=== PATIENT | male | born 1990 | race Two or more races ===

== ENCOUNTER 2016-06-24 15:47 | Emergency (ER) | payer OTHER ==
[2016-06-24 16:10] VITALS: BP 151/73; PULSE 85; RESP 18; TEMP 97.8
--- NOTE | 2016-06-24 17:10 | XR ---
EXAMINATION TYPE: XR knee complete LT DATE OF EXAM: 06/24/2016 5:01 PM COMPARISON: NONE HISTORY: Left knee pain since injury earlier today. TECHNIQUE: 3 views of the left knee were obtained. FINDINGS: There is a small suprapatellar joint effusion. No evidence of fracture or dislocation. Scle rosis of the lateral tibial plateau is more prominent then medial tibial plateau sclerosis. This is b geeta visualized than on the prior examination, although retrospectively evident. No significant join t space narrowing is noted. No marginal osteophytes are seen. No osteochondral defect is identified. Osseous mineralization is within normal limits. IMPRESSION: 1. No evidence of fracture or dislocation. 2. Small suprapatellar joint effusion. 3. Lateral compartment greater than medial compartment tibial sclerosis without joint space narrowing . This may relate to very early sequela osteoarthritic change.
--- NOTE | 2016-06-24 17:15 | ED ---
Lower Extremity Injury HPI - General Chief Complaint: Extremity Injury, Lower Stated Complaint: Knee Pain Time Seen by Provider: 06/24/16 16:29 Source: patient, RN notes reviewed, old records reviewed Mode of arrival: wheelchair Limitations: no limitations - History of Present Illness Initial Comments: Patient is a 25-year-old male with chief complaint of left knee pain. Patient reports that he was lifting up a box at work when he felt a twist from underneath him. Patient is any problems with his knee before. He states he is having difficulty fully extending his leg. He denies any numbness or tingling down the leg. Denies any hip pain. Patient reports that he does have range of motion however does cause some pain and he has noticed started to swell.Patient denies any recent fever, chills, shortness of breath, chest pain, back pain, abdominal pain, nausea vomiting, numbness or tingling, dysuria or hematuria, constipation or diarrhea, headaches or visual changes, or any other current symptoms - Related Data Home Medications Medication Instructions Recorded Confirmed Aspirin 243 mg PO ONCE PRN 06/24/16 06/24/16 Previous Rx's Medication Instructions Recorded Ibuprofen [Motrin] 800 mg PO Q6HR PRN #20 tab 06/24/16 Allergies Allergy/AdvReac Type Severity Reaction Status Date / Time trazodone AdvReac Unknown Verified 06/24/16 16:16 Review of Systems ROS Statement: Those systems with pertinent positive or pertinent negative responses have been documented in the HPI. ROS Other: All systems not noted in ROS Statement are negative. Past Medical History Past Medical History: No Reported History History of Any Multi-Drug Resistant Organisms: None Reported Past Surgical History: No Surgical Hx Reported Past Anesthesia/Blood Transfusion Reactions: No Reported Reaction Past Psychological History: ADD/ADHD, Anxiety, Depression, PTSD Smoking Status: Current every day smoker Past Alcohol Use History: Occasional Additional Past Alcohol Use History / Comment(s): Patient is a smoker of one pack per day for the past 14 years. He is also using marijuana one joint per day to help with sleeping. He is working doing [employer]. He should've stays with her friends and does not actually have a home. Patient briefly took his friend's Xanax but denies any other street drug use. He denies any diabetes drug use. He denies alcohol use. Past Drug Use History: None Reported - Past Family History Father Additional Family Medical History / Comment(s): He states he does not know his family's medical history other than on both sides his family there is been extensive cancer. He believes his mother is alive at age 39 and his father is alive at age 38. He does not have contact with them as he has been in foster care. Patient has one brother with schizophrenia and is currently in longterm. One younger brother is healthy with no medical problems. Patient has 3 sisters and one has autism General Exam Limitations: no limitations General appearance: alert, in no apparent distress Head exam: Present: normocephalic Eye exam: Present: normal appearance, PERRL, EOMI. Absent: scleral icterus, conjunctival injection, periorbital swelling ENT exam: Present: normal exam, mucous membranes moist Neck exam: Present: normal inspection. Absent: tenderness, meningismus, lymphadenopathy Respiratory exam: Present: normal lung sounds bilaterally. Absent: respiratory distress, wheezes, rales, rhonchi, stridor Cardiovascular Exam: Present: regular rate, normal rhythm, normal heart sounds. Absent: systolic murmur, diastolic murmur, rubs, gallop, clicks GI/Abdominal exam: Present: soft, normal bowel sounds. Absent: distended, tenderness, guarding, rebound, rigid Extremities exam: Present: normal inspection, full ROM, normal capillary refill. Absent: tenderness, pedal edema, joint swelling, calf tenderness Back exam: Present: normal inspection Neurological exam: Present: alert, oriented X3, CN II-XII intact Psychiatric exam: Present: normal affect, normal mood Skin exam: Present: warm, dry, intact, normal color. Absent: rash Course Vital Signs 06/24/16 16:07 Temperature 97.8 F Pulse Rate 85 Respiratory 18 Rate Blood Pressure 151/73 O2 Sat by Pulse 99 Oximetry Medical Decision Making - Medical Decision Making Patient is a pleasant 25-year-old male to plan of left knee pain after twisting after lifting some boxes. Patient's x-rays reviewed to small suprapatellar joint effusion. Patient is unable to fully extend his leg. He has had some tenderness over the medial meniscus. Patient will be placed in a knee immobilizer. Discussed close follow-up with orthopedic. Patient will be also written for crutches. Patient advised to elevate extremity apply heat and ice. Patient agrees to treatment plan will comply. Return parameters were discussed. - Radiology Data Radiology results: report reviewed Left knee x-ray shows no evidence of fracture dislocation. Small suprapatellar joint effusion. Lateral compartment greater than the medial compartment tibial sclerosis joint space. Narrowing. They may result in early sequela posterior throat change. This is read by Dr. Mihaela Gerber. Disposition Clinical Impression: Knee MCL sprain, Swollen L knee Disposition: HOME SELF-CARE Condition: Good Instructions: Knee Sprain (ED) Additional Instructions: Follow-up with orthopedic physician within the next 2-3 days. Patient needs to remain in a knee immobilizer. Apply ice over the area. Tammie with crutches. Return the emergency Department if any alarming signs or symptoms occur. Prescriptions: Ibuprofen [Motrin] 800 mg PO Q6HR PRN #20 tab PRN Reason: Pain Referrals: Lonny Chanel MD [Primary Care Provider] - 1-2 days Jonathan Braden MD [STAFF PHYSICIAN] - 1-2 days Time of Disposition: 17:11
== END 2016-06-24 17:24 | disposition home or self-care (01) ==
LOC: EC 15:47
DX: S83.412A Sprain of medial collateral ligament of left knee, initial encounter (principal); F17.200 Nicotine dependence, unspecified, uncomplicated; Z88.8 Allergy status to other drugs, medicaments and biological substances; Z79.82 Long term (current) use of aspirin; X50.1XXA Overexertion from prolonged static or awkward postures, initial encounter
CPT/HCPCS: 99283; 73562; L1830

== ENCOUNTER 2018-04-25 07:35 | Emergency (ER) | payer OTHER ==
[2018-04-25 07:45] VITALS: RESP 18
[2018-04-25] MEDS ORDERED: KETOROLAC 60 MG/2 ML VIAL IM STA (08:07)
[2018-04-25] MEDS ORDERED: ACET/COD 300 MG/30 MG STARTER PACK 6 TAB BTL PO STA (08:07)
--- NOTE | 2018-04-25 08:17 | ED ---
Lower Extremity Injury HPI - General Chief Complaint: Extremity Injury, Lower Stated Complaint: Knee Pain Time Seen by Provider: 04/25/18 08:00 Source: patient, RN notes reviewed, old records reviewed Mode of arrival: ambulatory Limitations: no limitations - History of Present Illness Initial Comments: Patient is a 27-year-old male presents emergency department today with chief complaint of right knee pain. Patient reports he towards meniscus approximately one year ago. He states he followed up orthopedic and they recommended surgery at that time. Patient states that he has been too busy with work to have time off to have surgery for his knee. Patient states that he 's had no fevers or chills. Denies any hematuria dysuria or abrasions over the knee. Patient states that he has had limited flexion of the knee within the past 2 weeks. He reports it is swollen. He's been taking Motrin and icing the knee. Patient states that he has no known trauma, may have twisted at work. - Related Data Home Medications Medication Instructions Recorded Confirmed Albuterol Inhaler [Ventolin Hfa 2 puff INHALATION Q8H 04/25/18 04/25/18 Inhaler] Ibuprofen [Motrin Ib] 800 mg PO Q6H 04/25/18 04/25/18 Previous Rx's Medication Instructions Recorded Ibuprofen [Motrin] 600 mg PO Q8HR PRN #30 tab 04/25/18 Allergies Allergy/AdvReac Type Severity Reaction Status Date / Time Pork/Porcine Containing AdvReac Unknown Verified 04/25/18 08:05 Products [Pork] trazodone AdvReac Unknown Verified 04/25/18 08:05 Review of Systems ROS Statement: Those systems with pertinent positive or pertinent negative responses have been documented in the HPI. ROS Other: All systems not noted in ROS Statement are negative. Past Medical History Past Medical History: No Reported History History of Any Multi-Drug Resistant Organisms: None Reported Past Surgical History: No Surgical Hx Reported Past Anesthesia/Blood Transfusion Reactions: No Reported Reaction Past Psychological History: ADD/ADHD, Anxiety, Depression, PTSD Smoking Status: Current every day smoker Past Alcohol Use History: Occasional Past Drug Use History: None Reported - Past Family History Father Additional Family Medical History / Comment(s): He states he does not know his family's medical history other than on both sides his family there is been extensive cancer. He believes his mother is alive at age 39 and his father is alive at age 38. He does not have contact with them as he has been in foster care. Patient has one brother with schizophrenia and is currently in custodial. One younger brother is healthy with no medical problems. Patient has 3 sisters and one has autism General Exam - General Exam Comments Initial Comments: This is a 27-year-old male. Alert and oriented. No distress. Limitations: no limitations General appearance: alert, in no apparent distress Head exam: Present: atraumatic, normocephalic, normal inspection Eye exam: Present: normal appearance, PERRL, EOMI. Absent: scleral icterus, conjunctival injection, periorbital swelling ENT exam: Present: normal exam, mucous membranes moist Neck exam: Present: normal inspection. Absent: tenderness, meningismus, lymphadenopathy Respiratory exam: Present: normal lung sounds bilaterally. Absent: respiratory distress, wheezes, rales, rhonchi, stridor Cardiovascular Exam: Present: regular rate, normal rhythm, normal heart sounds. Absent: systolic murmur, diastolic murmur, rubs, gallop, clicks GI/Abdominal exam: Present: soft, normal bowel sounds. Absent: distended, tenderness, guarding, rebound, rigid Extremities exam: Present: normal inspection, full ROM, normal capillary refill. Absent: tenderness, pedal edema, joint swelling, calf tenderness Right Upper Leg exam: Present: normal inspection Knee exam: Present: tenderness, swelling. Absent: normal inspection, full ROM ( Patient has pain with flexion. Able to flex to 90 degrees. ), abrasion, laceration Lower Leg exam: Present: normal inspection, full ROM Ankle exam: Present: normal inspection, full ROM Foot/Toe exam: Present: normal inspection, full ROM Neurovascular tendon exam: Present: no vascular compromise Back exam: Present: normal inspection Neurological exam: Present: alert, oriented X3, CN II-XII intact Psychiatric exam: Present: normal affect, normal mood Skin exam: Present: warm, dry, intact, normal color. Absent: rash Course Vital Signs 04/25/18 04/25/18 07:42 08:36 Temperature 98.2 F 98.6 F Pulse Rate 126 H 110 H Respiratory 18 18 Rate Blood Pressure 135/86 125/79 O2 Sat by Pulse 98 97 Oximetry Procedures - Orthopedic Splinting/Casting Injury #1 Side: right Lower Extremity Injury Location: knee Lower Extremity Immobilizer: knee immobilizer, Oscar wrap Additional Comments: is reevaluated neurovascularly intact. Medical Decision Making - Medical Decision Making Patient is a 27-year-old male presents today with right knee pain. Patient has significant suprapatellar joint effusion noted. He has pain with range of motion but does flex up to 90. He had a history of meniscus tear over ago. He is not follow-up with orthopedics for surgery. At this time patient's x-ray showed no significant change. They do show evidence of the suprapatellar effusion. Tender over the meniscus area. Patient has no skin abrasions or other risk factors for infection at this time. I did discuss the Patient if he was to have fevers or worsening swelling to return for reevaluation. Patient will be discharged at this time with any immobilizer and Oscar wrap. Redness prescription for crutches and a temperature medication. Discussed close follow- up with orthopedic. - Radiology Data Radiology results: report reviewed No acute fractures Patient. Large suprapatellar joint effusion. Concern for internal drainage from the knee correlate with MRI. 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 Return to the emergency department if any alarming signs or symptoms occur. Ambulate with crutches and knee immobilizer. Prescriptions: Ibuprofen [Motrin] 600 mg PO Q8HR PRN #30 tab PRN Reason: Pain Is patient prescribed a controlled substance at d/c from ED?: No Referrals: Santi Powers MD [Primary Care Provider] - 1-2 days Adonay Olivares MD [STAFF PHYSICIAN] - 1-2 days Time of Disposition: 08:54
--- NOTE | 2018-04-25 08:32 | XR ---
EXAMINATION TYPE: XR knee complete RT DATE OF EXAM: 04/25/2018 COMPARISON: NONE HISTORY: Pain TECHNIQUE: Four views are submitted. FINDINGS: Joint spaces are preserved. Osseous structures are intact. No acute fracture seen. Focal area of s clerosis involving the medial femoral condyle and proximal tibia likely related to bone island. There is a large suprapatellar joint effusion. IMPRESSION: 1. No acute fracture or dislocation. There is a large suprapatellar joint effusion. If there is conc eliane for internal derangement of the knee correlate with MRI.
[2018-04-25 08:39] VITALS: BP 125/79; PULSE 110; TEMP 98.6
== END 2018-04-25 09:07 | disposition home or self-care (01) ==
LOC: EC 07:35
DX: M25.461 Effusion, right knee (principal); F17.200 Nicotine dependence, unspecified, uncomplicated; Z79.899 Other long term (current) drug therapy; Z91.018 Allergy to other foods; Z88.8 Allergy status to other drugs, medicaments and biological substances
CPT/HCPCS: 96372; 99284

== ENCOUNTER 2018-11-30 18:59 | Emergency (ER) | payer OTHER ==
[2018-11-30] MEDS ORDERED: MORPHINE SULFATE 4 MG/ML SYRINGE IVP STA ×2 (19:23→22:04)
[2018-11-30 20:12] LABS: Basophils % (A) 0 %; Eosinophils # (A) 0.1 k/uL (0-0.7); Eosinophils % (A) 1 %; HCT 47.9 % (39.0-53.0); HGB 15.4 gm/dL (13.0-17.5); Lymphocytes # (A) 1.7 k/uL (1.0-4.8); Lymphocytes % (A) 23 %; MCH 30.9 pg (25.0-35.0); MCHC 32.2 g/dL (31.0-37.0); Mean Platelet Volume 6.6; Monocytes # (A) 0.5 k/uL (0-1.0); Monocytes % (A) 7 %; Neutrophils # (A) 4.8 k/uL (1.3-7.7); Neutrophils % (A) 66 %; Platelet Count 251 k/uL (150-450); RBC 4.99 m/uL (4.30-5.90); RDW 12.5 % (11.5-15.5); WBC 7.3 k/uL (3.8-10.6)
[2018-11-30 20:16] LABS: Partial Thromboplastin Time 29.1 sec (22.0-30.0); Prothrombin Time 10.6 sec (9.0-12.0)
[2018-11-30 20:26] LABS: ALT 124 U/L (21-72); AST 80 U/L (17-59); African American GFR (CKD) >90 (>60 ml/min/1.73 sqM); Albumin 4.1 g/dL (3.5-5.0); Alcohol <10 mg/dL; Alkaline Phosphatase 49 U/L (38-126); Anion Gap 8 mmol/L; Blood Urea Nitrogen 11 mg/dL (9-20); Calcium 9.5 mg/dL (8.4-10.2); Carbon Dioxide 26 mmol/L (22-30); Chloride 106 mmol/L (98-107); Creatine Kinase 358 U/L (55-170); Glucose 88 mg/dL (74-99); Non-African American GFR(CKD) >90 (>60 ml/min/1.73 sqM); Potassium 4.2 mmol/L (3.5-5.1); Sodium 140 mmol/L (137-145); Total Bilirubin 0.7 mg/dL (0.2-1.3); Total Protein 6.9 g/dL (6.3-8.2)
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
[2018-11-30] MEDS ORDERED: DIPH,PERTUS(ACELL)TETVAC-LF 0.5 ML VIAL IM ONE (21:23)
--- NOTE | 2018-11-30 21:45 | XR ---
EXAMINATION TYPE: XR shoulder complete LT DATE OF EXAM: 11/30/2018 COMPARISON: NONE HISTORY: Pain TECHNIQUE: 3 views FINDINGS: There is slight deformity at the AC joint consistent with an old injury. I see no acute fra cture nor dislocation. There are no pathologic calcifications at the greater tuberosity. IMPRESSION: No acute bony abnormality.
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
--- NOTE | 2018-11-30 21:47 | XR ---
EXAMINATION TYPE: XR wrist complete LT DATE OF EXAM: 11/30/2018 COMPARISON: NONE HISTORY: Pain. TECHNIQUE: 4 views FINDINGS: There is transverse fracture distal shaft of the fifth metacarpal without significant displ acement. There is slight posterior angulation on the lateral view. There is no dislocation. IMPRESSION: Acute fracture of the fifth metacarpal distal shaft.
--- NOTE | 2018-11-30 21:48 | XR ---
EXAMINATION TYPE: XR hand complete LT DATE OF EXAM: 11/30/2018 COMPARISON: NONE HISTORY: Pain TECHNIQUE: 3 views FINDINGS: There is slightly angulated distal fifth metacarpal shaft fracture. There is posterior mild soft tissue swelling. There is mild posterior angulation at the fracture site. The other metacarpals are intact. There is a 2 mm metallic foreign body in the soft tissues anterior to the PIP joint of t he little finger. IMPRESSION: Small soft tissue foreign body. Boxer fracture of the distal fifth metacarpal.
--- NOTE | 2018-11-30 21:49 | XR ---
EXAMINATION TYPE: XR pelvis AP view DATE OF EXAM: 11/30/2018 COMPARISON: NONE HISTORY: Pain TECHNIQUE: Single view FINDINGS: Pelvic ring is intact. Proximal femurs and hip joints are intact. Sacroiliac joints appear normal. IMPRESSION: Negative exam. No fracture.
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
[2018-11-30 22:38] VITALS: BP 135/79; PULSE 79; RESP 20; TEMP 98.3
== END 2018-11-30 22:43 | disposition home or self-care (01) ==
LOC: EC 18:59
DX: S62.337A Displaced fracture of neck of fifth metacarpal bone, left hand, initial encounter for closed fracture (principal); S00.81XA Abrasion of other part of head, initial encounter; G40.909 Epilepsy, unspecified, not intractable, without status epilepticus; F17.200 Nicotine dependence, unspecified, uncomplicated; Z79.899 Other long term (current) drug therapy; Z88.8 Allergy status to other drugs, medicaments and biological substances; Z23 Encounter for immunization; Z91.018 Allergy to other foods; V03.99XA Pedestrian with other conveyance injured in collision with car, pick-up truck or van, unspecified whether traffic or nontraffic accident, initial encounter; Y92.410 Unspecified street and highway as the place of occurrence of the external cause; Y93.89 Activity, other specified
CPT/HCPCS: 36415; 93005; 80053; 82550; 84484; 85025; 85610; 85730; 80320; 72170; 73030; 73110; 73130; 71045; 72125; 70486; 70450; 90715; 99285; 96374; 96376; 90471; 29125; J2270

== ENCOUNTER 2018-12-09 22:36 | Emergency (ER) | payer OTHER ==
[2018-12-09] MEDS ORDERED: HYDROcodone/APAP 5-325MG 1 EACH TAB PO STA (23:37)
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
--- NOTE | 2018-12-09 23:56 | XR ---
EXAMINATION TYPE: XR hand complete LT DATE OF EXAM: 12/09/2018 COMPARISON: 11/30/2018 HISTORY: Hand pain TECHNIQUE: 3 views FINDINGS: There is healing fracture distal shaft of the fifth metacarpal. There is bridging callus. T here is slight posterior angulation at the fracture site. There is 2 mm metallic foreign body at the distal phalanx of the little finger. The joint spaces are normal. IMPRESSION: Healing fracture of the fifth metacarpal with slight dorsal angulation unchanged compared to initial exam.
--- NOTE | 2018-12-09 23:57 | XR ---
EXAMINATION TYPE: XR wrist complete LT DATE OF EXAM: 12/09/2018 COMPARISON: 11/30/2018 HISTORY: Wrist pain hand pain TECHNIQUE: 4 views FINDINGS: The carpal bones are intact. Intercarpal joint spaces are fairly normal. There is healing f racture distal fifth metacarpal. Fracture line still visible. IMPRESSION: Healing fracture of the fifth metacarpal without change in position. No acute bony abnorm ality.
[2018-12-10 00:08] VITALS: BP 131/92; PULSE 112; RESP 18; TEMP 97.8
== END 2018-12-10 00:07 | disposition home or self-care (01) ==
LOC: EC 22:36
DX: S62.327D Displaced fracture of shaft of fifth metacarpal bone, left hand, subsequent encounter for fracture with routine healing (principal); G40.909 Epilepsy, unspecified, not intractable, without status epilepticus; F17.200 Nicotine dependence, unspecified, uncomplicated; Z79.899 Other long term (current) drug therapy; Z88.8 Allergy status to other drugs, medicaments and biological substances; Z91.018 Allergy to other foods; V89.2XXA Person injured in unspecified motor-vehicle accident, traffic, initial encounter

== ENCOUNTER 2018-12-20 23:12 | Emergency (ER) | payer OTHER ==
[2018-12-20 23:29] VITALS: BP 130/86; PULSE 87; RESP 18; TEMP 97.8
[2018-12-20] MEDS ORDERED: levETIRAcetam IV 1,000 MG in SALINE 1 100ML.BAG IVPB STA (23:34)
[2018-12-20] MEDS ORDERED: levETIRAcetam 500 MG TAB PO STA (23:38)
--- NOTE | 2018-12-20 23:41 | ED ---
General Adult HPI - General Chief complaint: Seizure Stated complaint: feels confused Time Seen by Provider: 12/20/18 23:14 Source: patient, EMS Mode of arrival: EMS Limitations: no limitations - History of Present Illness Initial comments: Dictation was produced using [employer] dictation software. please excuse any grammatical, word or spelling errors. Chief Complaint: 28-year-old male presents with concern of having a seizure. History of Present Illness: 8-year-old male who has past medical history seizure disorder. Patient is supposed to be on 100 mg of Keppra twice a day. States she's been without his Medications for several weeks. He just got insurance. Patient has history of illicit drug abuse. He states he 6 months clean of heroin. She states today he had a seizure earlier today. He called EMS and was transferred to the emergency department. Patient also has a fracture to his left hand. He was initially placed in a splint however has not been wearing it because he feels like a splint causes him pain. Surgery recommendation when he was initially diagnosed with a fracture 2 weeks ago. The ROS documented in this emergency department record has been reviewed and confirmed by me. Those systems with pertinent positive or negative responses have been documented in the HPI. All other systems are other negative and/or noncontributory. PHYSICAL EXAM: General Impression: Alert and oriented x3, not in acute distress HEENT: Normocephalic atraumatic, extra-ocular movements intact, pupils equal and reactive to light bilaterally, mucous membranes moist. Cardiovascular: Heart regular rate and rhythm, S1&S2 audible, no murmurs, rubs or gallops Chest: Lungs clear to auscultation bilaterally, no rhonchi, no wheeze, no rales Abdomen: Bowel sounds present, abdomen soft, non-tender, non-distended, no organomegaly Musculoskeletal: Pulses present and equal in all extremities, no peripheral edema Left hand: tender callus formation at the mid fifth metacarpal bone Motor: no focal deficits noted Neurological: CN II-XII grossly intact, no focal motor or sensory deficits noted Skin: Intact with no visualized rashes Psych: Normal affect and mood ED course: 28-year-old male presents after concerns of seizure. Brought in by EMS. Upon EMS evaluation patient was alert and oriented 4. Patient is otherwise well-appearing. Vital signs upon arrival are within acceptable limits. Patient is refusing all workup. He is well-appearing at this time. Patient was placed in a splint with extra padding that way he may be more compliant with this. Patient understands that we did not do a workup and that there could be something else that could be going on that may have caused the seizure. Patient understands the risk of the workup. States he just wants a prescription for his Keppra and he wants to leave. Patient is well-appearing. Patient understandable agreeable to the risks involved. Physical examination benign. Patient stable vitals. Patient will be discharged. He is told to follow-up with primary care physician. He will establish care with a neurologist.. - Related Data Home Medications Medication Instructions Recorded Confirmed levETIRAcetam [Keppra] 1,000 mg PO BID 11/30/18 12/20/18 Previous Rx's Medication Instructions Recorded levETIRAcetam [Keppra] 1,000 mg PO Q12HR 12 Days #24 tab 12/20/18 Allergies Allergy/AdvReac Type Severity Reaction Status Date / Time Pork/Porcine Containing AdvReac Unknown Verified 12/20/18 23:29 Products [Pork] trazodone AdvReac Unknown Verified 12/20/18 23:29 Review of Systems ROS Statement: Those systems with pertinent positive or pertinent negative responses have been documented in the HPI. ROS Other: All systems not noted in ROS Statement are negative. Past Medical History Past Medical History: Asthma, Seizure Disorder History of Any Multi-Drug Resistant Organisms: None Reported Past Surgical History: No Surgical Hx Reported Past Anesthesia/Blood Transfusion Reactions: No Reported Reaction Past Psychological History: ADD/ADHD, Anxiety, Depression, PTSD Smoking Status: Current every day smoker Past Alcohol Use History: Occasional Past Drug Use History: Heroin, Marijuana - Past Family History Father Additional Family Medical History / Comment(s): He states he does not know his family's medical history other than on both sides his family there is been extensive cancer. He believes his mother is alive at age 39 and his father is alive at age 38. He does not have contact with them as he has been in foster care. Patient has one brother with schizophrenia and is currently in long-term. One younger brother is healthy with no medical problems. Patient has 3 sisters and one has autism General Exam Limitations: no limitations Course Vital Signs 12/20/18 23:20 Temperature 97.8 F Pulse Rate 87 Respiratory 18 Rate Blood Pressure 130/86 O2 Sat by Pulse 98 Oximetry Disposition Clinical Impression: Seizure Disposition: HOME SELF-CARE Condition: Good Instructions (If sedation given, give patient instructions): Recurrent Seizures in Adults (ED) Prescriptions: levETIRAcetam [Keppra] 1,000 mg PO Q12HR 12 Days #24 tab Is patient prescribed a controlled substance at d/c from ED?: No Referrals: Santi Powers MD [Primary Care Provider] - 1-2 days Time of Disposition: 23:41
== END 2018-12-21 00:06 | disposition home or self-care (01) ==
LOC: EC 23:12
DX: G40.909 Epilepsy, unspecified, not intractable, without status epilepticus (principal); S62.92XA Unspecified fracture of left hand, initial encounter for closed fracture; F19.10 Other psychoactive substance abuse, uncomplicated; F17.200 Nicotine dependence, unspecified, uncomplicated; Z88.8 Allergy status to other drugs, medicaments and biological substances; Z91.018 Allergy to other foods; Z53.20 Procedure and treatment not carried out because of patient's decision for unspecified reasons; X58.XXXA Exposure to other specified factors, initial encounter
CPT/HCPCS: 29125; 99284

== ENCOUNTER 2019-06-13 22:20 | Emergency (ER) | payer OTHER ==
[2019-06-13 22:34] VITALS: TEMP 97.9
[2019-06-14 00:04] VITALS: BP 179/85; PULSE 128; RESP 22
--- NOTE | 2019-06-14 00:08 | ED ---
Overdose HPI - General Chief Complaint: Overdose Stated Complaint: Overdose Time Seen by Provider: 06/13/19 23:23 Source: patient, RN notes reviewed, old records reviewed Mode of arrival: EMS Limitations: no limitations - History of Present Illness Initial Comments: This is a 28-year-old male DF for evaluation patient forthright unable and unwilling to give history patient's been by EMS over overdose patient with a family member might of called there is mom and grandma. Patient has no complaints or pain now. Denies doing drugs today. Asthma to drinking alcohol today. Thinks he may have had a seizure to not take his Keppra but again not really participating questioning denying heroin Complaint: accidental overdose -: minutes(s) Intent: unwilling to say How Overdose Was Discovered: family/friend present at time Context: Intentional Overdose: drug/ETOH problems Context: Accidental Overdose: other (Won't say) Associated Symptoms: depression (Patient is not depressed or suicidal) - Related Data Home Medications Medication Instructions Recorded Confirmed levETIRAcetam [Keppra] 1,000 mg PO BID 11/30/18 12/20/18 Previous Rx's Medication Instructions Recorded levETIRAcetam [Keppra] 1,000 mg PO Q12HR 12 Days #24 tab 12/20/18 Allergies Allergy/AdvReac Type Severity Reaction Status Date / Time Pork/Porcine Containing AdvReac Unknown Verified 12/20/18 23:42 Products [Pork] trazodone AdvReac Unknown Verified 12/20/18 23:42 Review of Systems ROS Statement: Those systems with pertinent positive or pertinent negative responses have been documented in the HPI. ROS Other: All systems not noted in ROS Statement are negative. Past Medical History Past Medical History: Asthma, Seizure Disorder History of Any Multi-Drug Resistant Organisms: None Reported Past Surgical History: No Surgical Hx Reported Past Anesthesia/Blood Transfusion Reactions: No Reported Reaction Past Psychological History: ADD/ADHD, Anxiety, Depression, PTSD Smoking Status: Current every day smoker Past Alcohol Use History: Occasional Past Drug Use History: Heroin, Marijuana - Past Family History Father Additional Family Medical History / Comment(s): He states he does not know his family's medical history other than on both sides his family there is been extensive cancer. He believes his mother is alive at age 39 and his father is alive at age 38. He does not have contact with them as he has been in foster care. Patient has one brother with schizophrenia and is currently in shelter. One younger brother is healthy with no medical problems. Patient has 3 sisters and one has autism General Exam Limitations: no limitations General appearance: alert, in no apparent distress Head exam: Present: atraumatic, normocephalic, normal inspection Eye exam: Present: normal appearance, PERRL, EOMI. Absent: scleral icterus, conjunctival injection, periorbital swelling ENT exam: Present: normal exam, mucous membranes moist Neck exam: Present: normal inspection. Absent: tenderness, meningismus, lymphadenopathy Respiratory exam: Present: normal lung sounds bilaterally. Absent: respiratory distress, wheezes, rales, rhonchi, stridor Cardiovascular Exam: Present: normal rhythm, tachycardia, normal heart sounds. Absent: systolic murmur, diastolic murmur, rubs, gallop, clicks GI/Abdominal exam: Present: soft, normal bowel sounds. Absent: distended, tenderness, guarding, rebound, rigid Extremities exam: Present: normal inspection, full ROM, normal capillary refill. Absent: tenderness, pedal edema, joint swelling, calf tenderness Back exam: Present: normal inspection Neurological exam: Present: alert, oriented X3, CN II-XII intact Psychiatric exam: Present: normal affect, normal mood Skin exam: Present: warm, dry, intact, normal color. Absent: rash Course Vital Signs 06/13/19 06/14/19 22:29 00:03 Temperature 97.9 F Pulse Rate 82 128 H Respiratory 16 22 Rate Blood Pressure 139/88 179/85 O2 Sat by Pulse 99 93 L Oximetry - Reevaluation(s) Reevaluation #1: 06/14/19 00:07 Medical records reviewed Reevaluation #2: 06/14/19 00:07 Patient's asymptomatic Medical Decision Making - Medical Decision Making 8 male DF for overdose patient likely heroin overdose. The patient denies doing drugs today dispensed no call. Patient's maxillary ER stay can be discharged home Disposition Clinical Impression: Accidental drug overdose Disposition: HOME SELF-CARE Condition: Fair Instructions (If sedation given, give patient instructions): Adult Overdose (ED) Is patient prescribed a controlled substance at d/c from ED?: No Referrals: Santi Powers MD [Primary Care Provider] - 1-2 days
== END 2019-06-14 00:33 | disposition home or self-care (01) ==
LOC: EC 22:20
DX: T50.991A Poisoning by other drugs, medicaments and biological substances, accidental (unintentional), initial encounter (principal); G40.909 Epilepsy, unspecified, not intractable, without status epilepticus; F17.200 Nicotine dependence, unspecified, uncomplicated; Z79.899 Other long term (current) drug therapy; Z91.018 Allergy to other foods; Z88.8 Allergy status to other drugs, medicaments and biological substances
CPT/HCPCS: 99284

== ENCOUNTER 2019-06-14 06:53 | Emergency (ER) | payer OTHER ==
--- NOTE | 2019-06-14 07:32 | ED ---
General Adult HPI - General Chief complaint: Overdose Stated complaint: Overdose Time Seen by Provider: 06/14/19 07:03 Source: patient, EMS, RN notes reviewed, old records reviewed Mode of arrival: EMS Limitations: no limitations - History of Present Illness Initial comments: 28-year-old male presents with heroin overdose. Patient admits to using IV he roin. He had become apneic and EMS was called. He was given 4 mg of Narcan. Upon arrival patient is awake and alert. He has no specific complaints. He denies any cough, no difficulty breathing. No sore throat. Denies fever or chills. States this was recreational. He was recently released from alf. No suicide attempt. No depression. - Related Data Home Medications Medication Instructions Recorded Confirmed levETIRAcetam [Keppra] 1,000 mg PO BID 11/30/18 12/20/18 Previous Rx's Medication Instructions Recorded levETIRAcetam [Keppra] 1,000 mg PO Q12HR 12 Days #24 tab 12/20/18 Allergies Allergy/AdvReac Type Severity Reaction Status Date / Time Pork/Porcine Containing AdvReac Unknown Verified 12/20/18 23:42 Products [Pork] trazodone AdvReac Unknown Verified 12/20/18 23:42 Review of Systems ROS Statement: Those systems with pertinent positive or pertinent negative responses have been documented in the HPI. ROS Other: All systems not noted in ROS Statement are negative. Past Medical History Past Medical History: Asthma, Seizure Disorder History of Any Multi-Drug Resistant Organisms: None Reported Past Surgical History: No Surgical Hx Reported Past Anesthesia/Blood Transfusion Reactions: No Reported Reaction Past Psychological History: ADD/ADHD, Anxiety, Depression, PTSD Smoking Status: Current every day smoker Past Alcohol Use History: Occasional Past Drug Use History: Heroin, Marijuana - Past Family History Father Additional Family Medical History / Comment(s): He states he does not know his family's medical history other than on both sides his family there is been extensive cancer. He believes his mother is alive at age 39 and his father is alive at age 38. He does not have contact with them as he has been in foster care. Patient has one brother with schizophrenia and is currently in alf. One younger brother is healthy with no medical problems. Patient has 3 sisters and one has autism General Exam Limitations: no limitations General appearance: alert, in no apparent distress Head exam: Present: atraumatic, normocephalic Eye exam: Present: normal appearance, PERRL ENT exam: Present: normal exam Neck exam: Present: normal inspection. Absent: tenderness, meningismus Respiratory exam: Present: normal lung sounds bilaterally. Absent: respiratory distress, wheezes Cardiovascular Exam: Present: regular rate, normal rhythm GI/Abdominal exam: Present: soft. Absent: distended, tenderness, guarding Extremities exam: Present: normal inspection, normal capillary refill. Absent: pedal edema Neurological exam: Present: alert, oriented X3, CN II-XII intact. Absent: motor sensory deficit Psychiatric exam: Present: depressed. Absent: suicidal ideation Skin exam: Present: warm, dry, intact. Absent: cyanosis, diaphoretic Course Vital Signs 06/14/19 06/14/19 06:58 07:15 Temperature 100.9 F H Pulse Rate 109 H Respiratory 109 H 18 Rate Blood Pressure 152/93 O2 Sat by Pulse 96 Oximetry - Reevaluation(s) Reevaluation #1: 06/14/19 07:31 Patient admits to second overdose in 24 hours. Medical Decision Making - Medical Decision Making Patient observed in the emergency department. He is able to eat and drink. He has no complaints. He remains awake and alert without the need for additional doses of Narcan. He is eager for discharge. He is remorseful. He's given opiates addiction referral services. He is given a taxi ride. Disposition Clinical Impression: Accidental drug overdose, Poisoning by opiates and related narcotics, other Disposition: HOME SELF-CARE Condition: Fair Instructions (If sedation given, give patient instructions): Adult Overdose (ED) Is patient prescribed a controlled substance at d/c from ED?: No Referrals: Santi Powers MD [Primary Care Provider] - 1-2 days Time of Disposition: 08:24
[2019-06-14 08:45] VITALS: BP 131/79; PULSE 87; RESP 16; TEMP 100
== END 2019-06-14 08:30 | disposition home or self-care (01) ==
LOC: EC 06:53
DX: T40.601A Poisoning by unspecified narcotics, accidental (unintentional), initial encounter (principal); T40.1X1A Poisoning by heroin, accidental (unintentional), initial encounter; G40.909 Epilepsy, unspecified, not intractable, without status epilepticus; F17.200 Nicotine dependence, unspecified, uncomplicated; Z79.899 Other long term (current) drug therapy; Z88.8 Allergy status to other drugs, medicaments and biological substances; Z91.018 Allergy to other foods
CPT/HCPCS: 99284